=== PATIENT | male | born 1970 | race Caucasian/White ===

== ENCOUNTER 2018-04-14 09:29 | Emergency (ER) | payer OTHER ==
[~2018-04-14] VITALS: Ht 185.4 cm; Wt 83.5 kg
[2018-04-14 09:35] VITALS: Ht 185.4 cm; Wt 83.5 kg
[2018-04-14 10:12] VITALS: BP 146/97
== END 2018-04-14 10:12 | disposition home or self-care (01) ==
LOC: ED 09:29
DX: I10 Essential (primary) hypertension (principal); R41.840 Attention and concentration deficit; F41.9 Anxiety disorder, unspecified; Z76.0 Encounter for issue of repeat prescription